=== PATIENT | male | born 1990 | race Two or more races ===

== ENCOUNTER 2017-05-28 04:05 | Emergency (ER) | payer SELFPAY ==
[~2017-05-28] VITALS: Ht 172.7 cm; Wt 72.6 kg
--- NOTE | 2017-05-28 04:10 | NUR ---
PT A/OX4 BREATHING EFFORTLESSLY ON ROOM AIR, PT C/O LLQ ABD PAIN AND LEFT FLANK PAIN X 5 DAYS, PT DENIES ANY INJURY OR TRAUAM, PT STATES HIS LAST BM WAS EARLIER TODAY, PT DENIES ANY NAUSEA VOMITING OR DIARRHEA, PT ON MONITOR, IV PLACED LABS DRAWN, URINE COLLECTED MD MADE AWARE WILL CONTINUE TO MONITOR.
[2017-05-28] MEDS ORDERED: IV NS 0.9% 1,000 ML BAG IV ONE (04:30)
[2017-05-28] MEDS ORDERED: KETOROLAC TROMETHAMINE INJ 30 MG/ML VIAL IV ONE (04:30)
[2017-05-28] MEDS ORDERED: ONDANSETRON HCL/PF 4 MG/2 ML VIAL IVP ONE (04:30)
[2017-05-28] MEDS ORDERED: ONDANSETRON HCL/PF 4 MG/2 ML VIAL ONE (04:34)
[2017-05-28] MEDS ORDERED: IV NS 0.9% 1,000 ML ONE (04:34)
[2017-05-28] MEDS ORDERED: IV SET PRIMARY 1 EA INFUS.SET MC ONE (04:34)
[2017-05-28] MEDS ORDERED: KETOROLAC TROMETHAMINE INJ 30 MG/ML VIAL ONE (04:34)
[2017-05-28 04:47] LABS: BASOPHILS % (AUTO) 0.5 % (0.0-2.0); EOSINOPHILS # (AUTO) 0.1 /CMM (0.0-0.7); EOSINOPHILS % (AUTO) 1.8 % (0.0-6.0); HEMATOCRIT 48 % (39-51); HEMOGLOBIN 16.5 g/dL (13.5-17.5); LYMPHOCYTES # (AUTO) 2.1 /CMM (0.8-4.8); LYMPHOCYTES % (AUTO) 25.7 % (20.0-44.0); MEAN CORPUSCULAR HEMOGLOBIN 31 PG (26.0-33.0); MEAN CORPUSCULAR HGB CONC 35 g/dl (31.0-36.0); MEAN CORPUSCULAR VOLUME 89 fL (80-96); MONOCYTES # (AUTO) 0.5 /CMM (0.1-1.30); MONOCYTES % (AUTO) 5.5 % (2.0-12.0); NEUTROPHILS # (AUTO) 5.4 /CMM (1.8-8.9); NEUTROPHILS % (AUTO) 66.5 % (43.0-81.0); PLATELET COUNT (AUTO) 141 /CMM (150-450); RDW COEFFICIENT OF VARIATION 13.3 (11.5-15.0); RED BLOOD CELL COUNT(AUTO) 5.36 MIL/uL (4.5-6.0); WHITE BLOOD COUNT (AUTO) 8.1 K/uL (4.3-11.0)
[2017-05-28 04:59] LABS: CALCIUM, SERUM 9.7 mg/dL (8.5-10.1); CREATININE 1.3 mg/dL (0.6-1.3); POTASSIUM 4.2 mmol/L (3.5-5.1)
[2017-05-28 05:05] LABS: ALBUMIN 4.5 g/dL (3.4-5.0); BILIRUBIN,DIRECT 0.1 mg/dL (0.0-0.2); BILIRUBIN,TOTAL 0.7 mg/dL (0.2-1.0); TOTAL PROTEIN, SERUM 8.3 g/dL (6.4-8.2)
[2017-05-28 05:26] LABS: APPEARANCE,URINE CLEAR (CLEAR); BILIRUBIN,URINE NEGATIVE (NEGATIVE); BLOOD, URINE 3+ Ery/uL (NEGATIVE); COLOR,URINE YELLOW (YELLOW); KETONES,URINE NEGATIVE (NEGATIVE); LEUKOCYTE ESTERASE ,URINE TRACE (NEGATIVE); NITRITE, URINE NEGATIVE (NEGATIVE); PROTEIN,URINE NEGATIVE (NEGATIVE); UGLUCOSE NEGATIVE (NEGATIVE); UROBILINOGEN,URINE 0.2 EU/dL (0.2)
[2017-05-28 05:32] LABS: BACTERIA,URINE None seen /HPF (None Seen); RBC,URINE 20-30 /HPF (0-2); SQUAMOUS EPITHELIAL CELL,UR Few /HPF (None Seen)
[2017-05-28 05:33] LABS: CALCIUM OXALATE CRYSTALS,UR Moderate /HPF (None Seen)
[2017-05-28 05:44] VITALS: BP 132/80
--- NOTE | 2017-05-28 05:44 | NUR ---
IV removed. Catheter intact and site benign. Pressure and 4x4 applied to site. No bleeding noted.Patient discharged to home in stable condition. Written and verbal after care instructions given. Patient verbalizes understanding of instruction.
== END 2017-05-28 05:45 | disposition home or self-care (01) ==
LOC: ER 04:09
DX: N13.2 Hydronephrosis with renal and ureteral calculous obstruction (principal); Z88.0 Allergy status to penicillin
CPT/HCPCS: 36415; 80048-TC; 80076-TC; 81000-TC; 83690-TC; 85025-TC; 87086-TC; A4606; J1885; J2405; J7030; Z7610